=== PATIENT | female | born 1940 | race American Indian/Alaskan Native ===

== ENCOUNTER 2017-03-22 05:47 | Day surgery (SDC) | payer MEDICARE ==
[~2017-03-22 05:47] MED LIST: NACL 0.9% 1000 ML 1,000 ML IV SCH; PEPCID PO NR; VERSED IV NR
[2017-03-22] MEDS ORDERED: NACL BACTERIOSTATIC INFILTRATI ONE (06:17)
[2017-03-22] MEDS ORDERED: SUBLIMAZE ONE (07:31)
[2017-03-22] MEDS ORDERED: ZEMURON IV ONE (07:31)
[2017-03-22] MEDS ORDERED: XYLOCAINE CARDIAC IV ONE (07:31)
[2017-03-22] MEDS ORDERED: DIPRIVAN 10 MG/ML IV ONE (07:31)
[2017-03-22] MEDS ORDERED: XYLOCAINE 1% 20 mL ONE (07:44)
[2017-03-22] MEDS ORDERED: MARCAINE 0.5% 30 ML INFILTRATI ONE (07:44)
[2017-03-22] MEDS ORDERED: TRANSDERM-SCOP TD NR (08:00)
[2017-03-22] MEDS ORDERED: ANCEF/STERILE WATER 2 GM/20 ML IV NR (08:00)
[2017-03-22] MEDS ORDERED: NACL 0.9% IR ONE ×2 (09:30)
[2017-03-22] MEDS ORDERED: XYLOCAINE 1% 20 mL INFILTRATI ONE (09:30)
[2017-03-22] MEDS ORDERED: MARCAINE 0.5% INFILTRATI ONE (09:30)
[2017-03-22] MEDS ORDERED: ZOFRAN ONE (09:44)
[2017-03-22] MEDS ORDERED: NEOSTIGMINE ONE (09:44)
[2017-03-22] MEDS ORDERED: ROBINUL ONE ×2 (09:44)
[2017-03-22] MEDS ORDERED: QUELICIN ONE (09:44)
--- NOTE | 2017-03-22 09:51 | Discharge Summary ---
Providers - Providers Date of discharge: 03/22/17 Attending physician: ANGIE GARCIA Primary care physician: CATALINA ALONZO MD Hospitalization Condition: Good Procedures: 1. diagnostic laparoscopy, repair of internal hernia defect, egd Hospital course: pt had an uneventful diagnostic laparoscopy and egd for abdominal pain. she was recovered and discharged to home. Disposition: DC- TO HOME OR SELFCARE Core Measure Documentation - Palliative Care Palliative Care/ Comfort Measures: Not Applicable - Core Measures Any of the following diagnoses?: none Exam - Constitutional Vitals: Temp Pulse Resp BP Pulse Ox 99.6 F 55 L 18 164/89 100 03/22/17 06:33 03/22/17 06:33 03/22/17 06:33 03/22/17 06:33 03/22/17 06:33 General appearance: Present: no acute distress - Respiratory Respiratory effort: normal - Abdominal General gastrointestinal: Present: other (4 laparoscopic incisions c/d/i) Plan Activity: advance as tolerated Diet: regular Follow up with: CATALINA ALONZO MD [Primary Care Provider] - 7 Days
--- NOTE | 2017-03-22 10:35 | Operative Report ---
Operative Report Operative Report: DATE: 03/22/17 SURGEON: ANGIE GARCIA MD TREE TRIMMING SUPERVISOR: MÓNICA COOL CSA PROCEDURE: 1. DIAGNOSTIC LAPAROSCOPY 2. CLOSURE OF MESENTERIC DEFECT 3. EGD PRE-OP DX: ABDOMINAL PAIN POST OP DX: INTERNAL HERNIA, MARGINAL ULCER EBL: <5ML FINDINGS: MARGINAL ULCER AND MESENTERIC DEFECT AT JEJUNO-JEJUNOSTOMY COMPLICATIONS: NONE DETAILS: PLEASE SEE FORMAL DICTATION FOR DETAILS
[2017-03-22] MEDS ORDERED: DILAUDID IV PRN ×2 (10:51→12:00)
--- NOTE | 2017-03-22 11:25 | Anesthesia Day of Surgery ---
Anesthesia Day of Surgery - Day of Surgery Patient Examined: Yes Patient H&P Reviewed: Yes Patient is NPO: Yes
--- NOTE | 2017-03-22 11:27 | Anesthesia Consultation ---
Anesthesia Consult and Med Hx Date of service: 03/22/17 - Airway Anesthetic Teeth Evaluation: Good, Edentulous ROM Head & Neck: Adequate Mental/Hyoid Distance: Adequate Mallampati Class: Class II Intubation Access Assessment: Probably Good - Pulmonary Exam CTA: Yes - Cardiac Exam Cardiac Exam: RRR - Pre-Operative Health Status ASA Pre-Surgery Classification: ASA3 Proposed Anesthetic Plan: General - Cardiovascular System Hx Hypertension: Yes (OVER 20 YEARS) - Central Nervous System Hx Neuromuscular Disorder: Yes (syncope) Hx Psychiatric Problems: No - Endocrine Hx Non-Insulin Dependent Diabetes: Yes - Other Systems Hx Alcohol Use: Yes (OCASS) Hx Substance Use: No Hx Cancer: No
--- NOTE | 2017-03-22 11:53 | Operative Report ---
SURGEON: Tesfaye Garrett M.D. FIRE EQUIPMENT INSPECTOR HELPER: Pepe Bartlett CSA. PREOPERATIVE DIAGNOSIS: Abdominal pain. POSTOPERATIVE DIAGNOSIS: Internal hernia and marginal ulcer. PROCEDURE PERFORMED: 1. Diagnostic laparoscopy. 2. Closure of mesenteric defect. 3. EGD. ANESTHESIA: General with endotracheal tube intubation. SPECIMENS: None. ESTIMATED BLOOD LOSS: Minimal. 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 She was started on Carafate and Nexium, which she had some relief, but the pain is not completely resolved. She is here today for diagnostic laparoscopy and signed informed consent. DESCRIPTION OF PROCEDURE: The patient was brought to OR suite and laid in supine position. Bilateral lower extremity SCDs were placed. General anesthesia was induced via successful endotracheal tube intubation. The patient's abdomen was prepped and draped in sterile fashion after a Martin catheter was placed in sterile conditions. Her arms were tucked at her sides. Starting with a stab incision in the left subcostal region. A Veress needle was used to inflate the abdomen to a pressure of 15 mmHg, after which using Optiview technique, a 5 mm trocar was placed in the left upper quadrant. There was noted to be no gross injury to any intra-abdominal structures. Three working trocars were placed under direct visualization, a 5 mm in the left mid abdomen; 5 mm in the right upper quadrant; and a 5 mm in the right mid abdomen, which was converted to a 12 mm trocar in the middle of the case. Once this was complete, the abdomen was inspected. The three limbs of her gastric bypass Carlitos-en-Y anatomy was trace. The Carlitos limb was found to be antecolic, antegastric without kinking or obstruction. It traced to the jejunojejunostomy. The BP limb was traced to the ligament of Treitz and the common channel was traced successfully to the terminal ileum and cecum without incident. All bowel looked viable without any pathology. There was noted to be a mesenteric defect in the mesentery at the jejunojejunostomy. This was closed with a running Surgidac suture using an EndoStitch device. The mesentery between the Carlitos limb and the transverse colon was affected and was found to be secure with the exception of about a 1 cm small defect which was closed with one stitch and Surgidac as well. After this, an EEG was performed, which showed a pouch probably about 30-40 mL in capacity and anastomosis about 20 mm in diameter. However, she had two superficial small, less than 0.5 cm marginal ulcers in the jejunal side of her gastrojejunostomy. There were no signs of bleeding and minimal erythema. This is likely the cause of her epigastric discomfort. The Carlitos limb get into the was found to be without kinks or obstruction. The excess air and secretions were aspirated upon withdrawal of the EGD scope. The 12 mm trocar site was then closed with a Ronen-Altagracia suture passer device. Abdomen was fully desufflated. All skin incisions closed with 4-0 Monocryl followed by a skin glue dressing. Local anesthesia using 50:50 Marcaine, lidocaine mixture was used. The patient was awoken, extubated. Martin was removed. She was taken to recovery in stable condition. All counts were correct. JOB# [id number] NARGIS/MAU
[2017-03-22] MEDS ORDERED: ULTRAM PO PRN (12:00)
[2017-03-22] MEDS ORDERED: LACTATED RINGERS 1,000 ML IV SCH (12:00)
[2017-03-22] MEDS ORDERED: ZOFRAN IV PRN (12:00)
[2017-03-22 13:42] VITALS: BP 139/91
== END 2017-03-22 13:38 | disposition home or self-care (01) ==
LOC: OR 05:47
PROVIDERS: ATTEND Surgery
DX: K46.9 Unspecified abdominal hernia without obstruction or gangrene (principal); K28.9 Gastrojejunal ulcer, unspecified as acute or chronic, without hemorrhage or perforation; I10 Essential (primary) hypertension; E11.9 Type 2 diabetes mellitus without complications; M19.90 Unspecified osteoarthritis, unspecified site; Z98.890 Other specified postprocedural states; Z88.8 Allergy status to other drugs, medicaments and biological substances
CPT/HCPCS: 43235; 49320; 82962; 93005; 93010; A4217; J0330; J0690; J2001; J2405; J2704; J2710; J3010; J7030; J2250